=== PATIENT | male | born 1970 | race Caucasian/White ===

== ENCOUNTER 2021-09-25 09:42 | Day surgery (SDC) | payer SELFPAY ==
[2021-09-25] VITALS (18 sets, daily range): BP systolic 126–154; BP diastolic 82–99; PULSE 77–100; RESP 12–21; TEMP 36.4–37.1; O2SAT 93–97; BMI 34.9
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
--- NOTE | 2021-09-25 10:00 | DI.RAD_ITS ---
Exam(s) XR SHOULDER LT COMPLETE 2+V EXAM: XR SHOULDER LT COMPLETE 2+V CLINICAL HISTORY: fall onto L shoulder, r/o fx vs dislocation. TECHNIQUE: 2D digital imaging was performed. Five views. COMPARISON: No exams were available for comparison FINDINGS: There is an anterior dislocation of humeral head which is impacted on the anterior margin of the armaan oid. There are multiple adjacent fracture fragments which appear to arise from the humeral head. No definite glenoid fracture is seen. AC joint and visualized portions of the left ribs appear intact. IMPRESSION: Anterior shoulder dislocation with humeral head impacted on the anterior margin of the glenoid with a djacent small fracture fragments. DATA REPOSITORY: RADIATION DOSE DELIVERED:
[2021-09-25] MEDS: Ibuprofen 600 MG TAB PO (10:55)
--- NOTE | 2021-09-25 12:11 | W.ANESPRE ---
General Info Date of Service Date Performed: 09/25/21 Height: 5 ft 9 in Weight: 107.501 kg Body Mass Index (BMI): 34.9 Meds Allergies and Home Medications Allergies Allergy/AdvReac Type Severity Reaction Status Date / Time No Known Allergies Allergy Unverified 09/25/21 12:11 Home Medication Medication Instructions Recorded Unknown [No Known Home Meds] 09/25/21 [facility] Medical History Medical History (Updated 09/25/21 @ 10:15 by Anahi Rios DO) No significant past medical history Surgical History Surgical History (Updated 09/25/21 @ 10:15 by Anahi Rios DO) History of repair of ACL History of tonsillectomy Tobacco Smoking/Tobacco Use Status: Former Tobacco Use Alcohol Alcohol Intake: current Alcohol intake frequency: a few times a week Alcohol type: hard liquor Substance Use Substance use: Daily Substance use type: marijuana Vital Signs and Lab Results Vital Signs Most Recent Vital Signs in EMR: Most Recent Vital Signs Temp Pulse Resp BP Pulse Ox 36.7 C 94 H 15 145/92 H 96 09/25/21 09:45 09/25/21 09:45 09/25/21 12:00 09/25/21 09:45 09/25/21 12:00 Lab Results Blood Type / Crossmatch: No Data to Display Complete Blood Count: No Data to Display Complete Metabolic Panel: No Data to Display Liver Function Panel: No Data to Display Coagulation Panel: No Data to Display Cardiac Panel: No Data to Display Arterial Blood Gas: No Data to Display Venous Blood Gas: No Data to Display Pancreas Panel: No Data to Display Thyroid Panel: No Data to Display Infectious Disease: No Data to Display Blood Cultures: No Data to Display Toxicology Panel: No Data to Display Anesthesia Assessment and Plan Anesthesia History Personal History: No History of Anesthesia Complications Family History: No Family History of Anesthesia Complications Exercise Tolerance Exercise Tolerance: Metabolic Equivalents>4 Pertinent Negatives Pertinent Negatives: No Symptoms of GERD (Usually heartburn aftereating), No Major Cardiovascular Symptoms or Complaints, No Major Pulmonary Symptoms or Complaints, No History of CVA/TIA and Other (Seizure when 10) Cardiac & Pulmonary Exam Cardiac Exam: Normal S1/S2 Heart Sounds Pulmonary Exam: Clear Bilateral Breath Sounds Implantable Cardiac Device Does patient have a Pacemaker or an ICD?: No Airway Exam Known Difficult Airway: No Mallampati Class: 4 Mouth Opening: Normal (> 3cm) Thyromental Distance: Greater than 3 cm Neck Range of Motion: Full ROM Neck Circumference: Normal Teeth Condition: Loose or Chipped ASA Classification ASA Score: ASA 2 Emergency Case?: No NPO Status NPO Status: NPO Clears >2 hours, Solids >8 hours Anesthesia Plan Resuscitation Status: Full Code Anesthesia Technique: Primary Nerve Block Airway Planned: Natural Airway Pain Management: Surgeon and patient request nerve block Monitors Used: Standard Monitors
--- NOTE | 2021-09-25 12:50 | W.ANESNERVE ---
Nerve Block Single Injection Procedure Date and Time Date Performed: 09/25/21 Procedure Start: 12:30 Location Where Procedure Performed Procedure Location: Emergency Department Reason Performed: Acute Pain Management Pain Diagnosis: Shoulder Pain Requesting Provider: Anahi Rios Timeout Performed Timeout Performed: Yes Monitoring Used ECG, Blood Pressure and SpO2 Sterility Sterility: Hand Hygiene, Surgical Cap, Surgical Mask, Sterile Gloves, Eye Protection and Chlorhexidine Sedation Given During Procedure Sedation Given (Indicate Dose Given): No Sedation given Patient Mental Status Patient Mental Status: Awake Nerve Block 1st Nerve Block: Laterality: Left Block Type: Interscalene Needle / Catheter Used: 100mm SonoPlex II Local Anesthetic Bolus (Indicate Dose Given): Lidocaine used for local infiltration of skin and Chloroprocaine 3% Dose:: 20ml Additives (Indicate Dose Given): None Ultrasound: Sterile probe cover and gel used Ultrasound Image Saved?: Yes Nerve Stimulator: Not Used Paresthesia: None Procedure Tolerated: No Complications and Patient tolerated well Procedure Outcome: Successful Performed By: Sonja Love Supervised By: Agapito Kamara
--- NOTE | 2021-09-25 12:55 | NUR.NOTE ---
block was done to pt and pt states he has 0/10 pain at this time, pt appears comfortable. VANDANA
--- NOTE | 2021-09-25 13:36 | DI.RAD_ITS ---
Exam(s) XR SHOULDER LT COMPLETE 2+V EXAM: XR SHOULDER LT COMPLETE 2+V INDICATION: post-reduction. COMPARISON: US US OR ANESTHESIA from 09/25/2021 CR XR SHOULDER LT COMPLETE 2+V from 09/25/2021 TECHNIQUE: 2D digital imaging was performed. Two views FINDINGS: The humeral head remains impacted on the anterior inferior aspect of the glenoid unchanged from prio r. A fracture of the inferior glenoid is visible. DATA REPOSITORY: RADIATION DOSE DELIVERED:
--- NOTE | 2021-09-25 13:45 | RT.EKG_ITS ---
APPROVED REPORT Exam: Resting ECG Reason for Exam: chest pain Patient Location: E HR:92 bpm ECG Measurements Heart Rate 92 AXIS KS 163 P 29 QRSd 106 QRS 10 QT 352 T 20 QTc 437 Conclusion Sinus rhythm...normal P axis, V-rate 60- 99. Sinus. Normal axis. No STEMI. I have reviewed and interpreted ECG and agree with software generated interpretation.
[2021-09-25 13:54] LABS: Source Nasal/Nares
[2021-09-25] MEDS: Famotidine 20 MG/2 ML VIAL IVP (14:05)
[2021-09-25] MEDS: fentaNYL 100 MCG/2 ML VIAL 75 MCG IVP (14:06)
--- NOTE | 2021-09-25 14:15 | DI.RAD_ITS ---
Exam(s) XR SHOULDER LT 1V EXAM: XR SHOULDER LT 1V CLINICAL HISTORY: Left shoulder dislocation. TECHNIQUE: 2D and realtime digital imaging was performed. COMPARISON: CR XR SHOULDER LT COMPLETE 2+V from 09/25/2021 FINDINGS: Three hard copy images show reduction of the previously noted anterior dislocation and normal alignme nt of the glenohumeral joint. Fracture fragments are visible adjacent to the greater tuberosity and inferior to the glenoid. Please see procedure note for details. Fluoro time 1.8 seconds RADIATION DOSE DELIVERED: nils Senior=0.26 mGy
--- NOTE | 2021-09-25 14:23 | W.ORTHOCONSU ---
Date of service: 09/25/21 Time of Service: 14:19 History of Present Illness Narrative: Mechanical fall today left side with sudden onset severe shoulder pain and deformity. No pre-existing rotator cuff or shoulder issues. No prior shoulder dislocations. [id number]. Consult Reason Left shoulder fracture dislocation Assessment and Plan Assessment and plan (1) Fracture dislocation of left shoulder joint: Status: Acute Assessment and plan: 51-year-old male with left shoulder fracture dislocation. Fracture appears to involve greater tuberosity likely Hill-Sachs component. Concern for concomitant rotator cuff injury. Recommend urgent reduction, which will be done under sedation/anesthesia now. Reassessment of joint stability and fracture after reduction. Likely CT scan and MRI left shoulder for surgical planning. The risks, benefits, and alternatives were thoroughly discussed. Patient was counseled regarding pain management, expected postoperative course, and recovery timeline. All questions were answered. Informed consent was obtained. Agree and understand treatment plan. Breathing comfortably on room air. No coughs or wheezes. 2+ left radial pulse. Regular rate and rhythm. Review of Systems Narrative: Denies any numbness or tingling in left upper extremity prior to nerve block. Remainder negative except per ED the record regarding epigastric discomfort PFSH All Active Problems (Updated 09/25/21 @ 14:21 by Hamzah Loera MD) Fracture dislocation of left shoulder joint (Acute 09/25/21) Medical History No significant past medical history Surgical History History of repair of ACL History of tonsillectomy Social History Smoking/Tobacco Use Status: Former Tobacco Use Quit Date: 05/28/17 Smoking risk assessment performed?: Yes Alcohol Intake: current Alcohol Intake frequency: a few times a week Alcohol type: hard liquor Drug use: Daily Substance use type: marijuana Do you feel safe at home: Yes Exam Narrative Exam Narrative: Left shoulder obvious anterior dislocation deformity. Positive sulcus sign. Sniffing and tension in discomfort with attempted shoulder range of motion including gentleman Milch or Violeta for reduction. Results Last Vital Signs Temp 98.1 F 09/25/21 09:45 Pulse 94 H 09/25/21 12:52 Resp 21 09/25/21 12:52 BP 126/82 09/25/21 12:52 Pulse Ox 93 09/25/21 12:52 Labs Labs: Laboratory Results - last 24 hr 09/25/21 13:48 COVID-19 Source Nasal/Nares
[2021-09-25 14:33] LABS: COVID-19 PCR Negative (Negative)
--- NOTE | 2021-09-25 15:05 | DI.CT_ITS ---
Exam(s) CT UPPER EXTREMITY LT WO EXAM: CT UPPER EXTREMITY LT WO CLINICAL HISTORY: s/p fall, L shoulder fx/dislocation TECHNIQUE: Imaging Protocol: Axial computed tomography images with coronal and sagittal reformatted images were created and reviewed. CONTRAST MATERIAL: Noncontrast COMPARISON: CR XR SHOULDER LT COMPLETE 2+V from 09/25/2021 FINDINGS: The humeral head is now normally aligned with the glenoid. Multiple fracture fragments are seen li cent to the greater tuberosity which are mildly displaced. There is a small fracture fragment beneat h the inferior glenoid. The scapula and visualized portions of the ribs appear intact. The AC joint is not widened. The clavicle is intact. The visualized portions of the left lung are clear. IMPRESSION: Humeral head now in normal alignment with glenoid. Fracture fragments at the greater tuberosity and inferior aspect of the glenoid. RADIATION DOSE DELIVERED: 1,044.67mGy.cm Total DLP DATA REPOSITORY: All CT scans at this facility are submitted to the National Radiology Data Registry (NRDR) Dose Index Registry (DIR) with the [employer] (A[employer]). RADIATION OPTIMIZATION: All CT scans at this facility use at least one of these dose optimization te chniques: automated exposure control; mA and/or kV adjustment per patient size (includes targeted exa ms where dose is matched to clinical indication); or iterative reconstruction.
[2021-09-25] MEDS: Naproxen 500 MG TAB PO (15:14)
--- NOTE | 2021-09-25 15:23 | W.PM.DSUDISC ---
Discharge Plan Disposition Patient Disposition: HOME Condition: Stable Discharge Details Reason For Visit: Left shoulder injury Attending Provider: Hamzah Loera Primary Care Provider: Jamel Zee Home Meds and New Rx's Prescriptions: New naproxen 250 mg tablet 250 - 500 mg PO BID PRNQty: 40 0RF Rx Instructions: take with a meal oxycodone 5 mg tablet 5 - 10 mg PO Q4H MDD 30 mg PRN (Reason: moderate to severe pain) Qty: 18 0RF Discharge Instructions Additional Instructions: Surgery: Left shoulder reduction under anesthesia Activity: You suffered a fracture and dislocation of your left shoulder. TAKE IT EASY. Minimal use and minimal motion of the left shoulder. This injury might require surgical repair. You should keep your arm at your side in a neutral position at all times. Do not try to lift or raise your arm using your own muscles. You should use the sling whenever you are out of the house. At home, you may remove the sling and rest the arm on a pillow at your side or support it with your other hand. Prescriptions: Naproxen 250 mg take 1-2 every 12 hours with a meal as needed for moderate pain Oxycodone 5 mg take 1-2 every 4-6 hours as needed for severe pain You may use [id number] Tylenol (acetaminophen) as needed for mild pain. These pain medications may be taken all at once or in different combinations as needed. Also, recommend Colace (docusate) as a stool softener as surgery and pain medicine cause constipation. Dressings: None Follow-up: 10-[address] Loera. An MRI has been ordered to evaluate potential rotator cuff tear and labral injury and will be arranged prior to this follow-up appointment. Let us know right away if you develop any redness, drainage, fevers, chest pain, or trouble breathing. Do not drink alcohol or drive for at least 24 hours after anesthesia. Please call the office during business hours with any questions or concerns. Referrals: Hamzah Loera MD [ [facility] STAFF PHYSICIAN] - Discharge Orders Discharge Orders: Discharge Order (Routine); Ordered 09/25/21 Ordered By: Hamzah Loera DS: Diagnosis Discharge Diagnosis (1) Fracture dislocation of left shoulder joint: Status: Acute
--- NOTE | 2021-09-25 15:33 | W.PM.OP ---
Date of service: 09/25/21 Time of Service: 14:49 Operative Note Operative Note DATE OF PROCEDURE: 09/25/21 PRE-OP DIAGNOSIS: Left shoulder fracture dislocation 1. Anterior shoulder dislocation 2. Bony Bankart fracture 3. Comminuted proximal humerus greater tuberosity fracture PROCEDURE: Closed treatment left shoulder with manipulation anesthesia, CPT #90203 SURGEON: Hamzah Loera ASSISTING SURGEON: Moira Pizarro ANESTHESIA TYPE: General:No Airway Refer to Anesthesia Record ESTIMATED BLOOD LOSS: 0 COMPLICATIONS: None Patient was transported to: same day Patient's condition: stable Indications: Please see complete medical record for details. Procedure Description: In the operating room, general anesthesia was induced. The patient was supine on the stretcher.. All bony prominences were well-padded. The correct patient, procedure, and side of the procedure were all verified prior to beginning. Sulcus sign obvious anterior prominence was confirmed. Once adequate relaxation was achieved, the business services assistant guided the left shoulder through the Violeta reduction maneuver involving abduction, flexion, and external rotation while I directed motion including traction and direct manipulation of the proximal humerus anteriorly with lateral assisted directed force. There was obvious reduction of the anterior prominence and resolved sulcus sign. Fluoroscopic images confirmed glenohumeral shoulder joint reduction. The arm was taken through full internal rotation at the side, external rotation to 30 degrees, and abduction to 90 degrees with gentle internal and external rotation with no repeat dislocation or significant instability. The greater tuberosity had obvious comminuted impaction type fracture that moved as a unit through this gentle fluoroscopic testing. There is also a visible small bony Bankart fracture anteriorly inferiorly. The left upper extremity was carefully placed into a sling appropriately fit and securing the extremity at the side and internally rotated across the body. The patient awoke from anesthesia without complication and was transferred to the day surgery unit in stable condition. CT scan pending to further evaluate proximal humerus fracture.
--- NOTE | 2021-09-25 15:35 | W.ANESPOSTOP ---
Postoperative Evaluation Date, Time and Location Date Performed: 09/25/21 Time Performed: 15:36 Patient Location: Day Surgery Unit Vital Signs Most Recent Imported Vital Signs: Most Recent Vital Signs Temp Pulse Resp BP Pulse Ox 36.8 C 92 H 16 130/87 96 09/25/21 15:15 09/25/21 15:15 09/25/21 15:15 09/25/21 15:15 09/25/21 15:15 Pain Score Most Recent Pain Score: Most Recent Pain Score Pain Level [left shoulder] 8 09/25/21 10:08 Pain Level 3 09/25/21 15:15 Assessment Mental Status: Awake (Alert & Oriented to Patient Baseline) Airway and Respiratory Function: Patent airway with normal (patient baseline) respiratory exam Cardiovascular Function: Hemodynamically Stable Hydration Status: Adequately Hydrated Nausea & Vomiting: No Nausea or Vomiting Pain: Pain is tolerable per patient Peripheral Nerve Block: Patient did not receive a nerve block
--- NOTE | 2021-09-30 07:26 | NUR.NOTE ---
Nursing Note: Accessed chart for [facility] information. Mari Stiles
== END 2021-09-25 16:09 | disposition home or self-care (01) ==
LOC: DSU 14:30 → ER 14:30 → SUR 14:32
PROVIDERS: Emergency Provider Physician Assistant; PCP Family Medicine; Visit Provider Student in an Organized Health Care Education/Training Program
PROC: (CPT 23655; principal; 2021-09-25 13:45)
DX: S42.252A Displaced fracture of greater tuberosity of left humerus, initial encounter for closed fracture (principal); W19.XXXA Unspecified fall, initial encounter; R10.13 Epigastric pain
CPT/HCPCS: 23655; 87635; 93005; 73020; 73030; 73200; 93010; J2250; J3010